=== PATIENT | male | born 1960 | race Caucasian/White ===

== ENCOUNTER 2019-09-09 11:35 | Emergency (ER) | payer MEDICARE ==
[2019-09-09 12:49] VITALS: BP 130/87
--- NOTE | 2019-09-09 13:26 | UC ---
Respiratory Complaint HPI - HPI Summary HPI Summary: cough x 2 months, cough is productive with yellow sputum worse with deep breathing, better with rest, denies any runny nose, no sore throat, no fever, no chills, no sob - History of Current Complaint Chief Complaint: UCGeneralIllness Stated Complaint: COUGH Time Seen by Provider: 09/09/19 12:55 Hx Obtained From: Patient Onset/Duration: Gradual Onset, Lasting Weeks - 8, Still Present Timing: Constant Severity Initially: Moderate Severity Currently: Moderate Pain Intensity: 0 Character: Cough: Productive Aggravating Factors: Exertion, Deep Breaths Alleviating Factors: Nothing Associated Signs And Symptoms: Negative: Dyspnea, Fever, Chills, Wheezing, Hemoptysis, Dizziness, Calf Pain, Calf Swelling, URI, Nasal Congestion - Allergies/Home Medications Allergies/Adverse Reactions: Allergies Allergy/AdvReac Type Severity Reaction Status Date / Time No Known Allergies Allergy Verified 09/09/19 12:49 Home Medications: Home Medications Verapamil HCl 180 tab PO BID 01/26/17 [History Confirmed 09/09/19] Atorvastatin* [Lipitor*] 10 mg PO BEDTIME 09/09/19 [History Confirmed 09/09/19] Lisinopril TAB* [Prinivil TAB*] 10 mg PO DAILY 09/09/19 [History Confirmed 09/08] Nortriptyline HCl 75 mg PO BEDTIME 09/09/19 [History Confirmed 09/09/19] PMH/Surg Hx/FS Hx/Imm Hx Cardiovascular History: Cardiac Disease, Hypertension - Surgical History Surgical History: Yes Surgery Procedure, Year, and Place: pacemaker-non compatible with MRI. - Family History Known Family History: Positive: Hypertension - Social History Alcohol Use: None Substance Use Type: None Smoking Status (MU): Never Smoked Tobacco Review of Systems All Other Systems Reviewed And Are Negative: Yes Constitutional: Positive: Negative Skin: Positive: Negative Eyes: Positive: Negative ENT: Positive: Negative. Negative: Sore Throat, Nasal Discharge Respiratory: Positive: Cough Is Patient Immunocompromised?: No Physical Exam Triage Information Reviewed: Yes Appearance: Well-Appearing, No Pain Distress, Well-Nourished Vital Signs: Initial Vital Signs Temp 98.3 F 09/09/19 12:43 Pulse 66 09/09/19 12:43 Resp 17 09/09/19 12:43 BP 130/87 09/09/19 12:43 Pulse Ox 99 09/09/19 12:43 Vital Signs Reviewed: Yes Eye Exam: Normal Eyes: Positive: Conjunctiva Clear ENT Exam: Normal ENT: Positive: Normal ENT inspection, Hearing grossly normal, Pharynx normal Neck exam: Normal Neck: Positive: Supple, Nontender, No Lymphadenopathy Respiratory: Positive: Chest non-tender, No respiratory distress, No accessory muscle use, Crackles - bilateral lower lungs Cardiovascular: Positive: RRR, No Murmur, Pulses Normal Skin Exam: Normal Diagnostics - Radiology No standard instances Radiology Interpretation Completed By: Radiologist Summary of Radiographic Findings: chest xray report : IMPRESSION: HYPERINFLATION , CONSISTENT WITH COPD. NO ACTIVE CARDIOPULMONARY DISEASE. Respiratory Course/Dx - Differential Dx/Diagnosis Provider Diagnosis: Bronchitis Discharge ED - Sign-Out/Discharge Documenting (check all that apply): Patient Departure All imaging exams completed and their final reports reviewed: Yes - Discharge Plan Condition: Stable Disposition: HOME Patient Education Materials: Acute Bronchitis (ED) Referrals: No Primary Care Phys,NOPCP [Primary Care Provider] - If Needed - Billing Disposition and Condition Condition: STABLE Disposition: Home
== END 2019-09-09 13:28 | disposition home or self-care (01) ==
LOC: UCCORT 11:35
DX: J40 Bronchitis, not specified as acute or chronic (principal); R91.8 Other nonspecific abnormal finding of lung field; I10 Essential (primary) hypertension; Z79.899 Other long term (current) drug therapy
CPT/HCPCS: 71046; 99211; G0463